=== PATIENT | female | born 1955 | race Caucasian/White ===

== ENCOUNTER 2018-01-08 05:57 | Observation (INO) | payer MEDICARE, MEDICAID ==
[~2018-01-08] VITALS: Ht 149.9 cm; Wt 73.0 kg
[2018-01-08] VITALS (8 sets, daily range): BP systolic 114–156; BP diastolic 55–75; Ht 149.9 cm; Wt 73.0 kg
[2018-01-08] MEDS ORDERED: KLONOPIN (06:17)
[2018-01-08] MEDS ORDERED: TRAZADONE (06:17)
[2018-01-08] MEDS ORDERED: SPIRONOLACTONE (06:17)
[2018-01-08] MEDS ORDERED: CYMBALTA (06:17)
[2018-01-08] MEDS ORDERED: MONOPRIL (06:17)
[2018-01-08] MEDS ORDERED: ABILIFY (06:17)
[2018-01-08] MEDS ORDERED: LANTUS SC (06:18)
[2018-01-08] MEDS ORDERED: HUMALOG (06:19)
[2018-01-08 07:08] LABS: BASOPHILS 0.3 % (0-2); EOSINOPHILS 3.3 % (0-7); HEMATOCRIT 42.4 % (36.0-48.0); HEMOGLOBIN 14.5 g/dL (12-16); LYMPHOCYTES 37.4 % (15-50); MCH 31.9 pg (26.0-34.0); MCHC 34.2 g/dL (31.0-37.0); MCV 93.2 fL (80.0-100.0); MEAN PLATELET VOLUME 9.6 fL (7.4-10.4); MONOCYTES 6.6 % (2-11); NEUTROPHILS 50.4 % (40-80); PLATELET COUNT 203 10x3/uL (130-400); RBC 4.55 10x6/uL (4.00-5.40); RDW 14.1 % (11.5-14.5); WBC 10.6 10x3/uL (4.8-10.8)
[2018-01-08 07:38] LABS: ALBUMIN 3.3 g/dL (3.4-5.0); ANION GAP 12.6 mmol/L (8-16); BILIRUBIN - TOTAL 0.28 mg/dL (0.2-1.3); CALCIUM 9.1 mg/dL (8.5-10.1); CARBON DIOXIDE 26.1 mmol/L (21.0-32.0); CREATININE - SERUM 1.1 mg/dL (0.6-1.3); POTASSIUM - SERUM 4.7 mmol/L (3.5-5.1); PROTEIN - SERUM 7.2 g/dL (6.4-8.2)
[2018-01-08 07:47] LABS: T4 THYROXIN - FREE 1.44 ng/dL (0.76-1.46); THYROID STIMULATING HORMONE 3.14 uIU/mL (0.36-3.74)
[2018-01-09 01:02] VITALS: BP 106/74
[2018-01-09 05:38] LABS: BASOPHILS 0.5 % (0-2); EOSINOPHILS 1.7 % (0-7); HEMATOCRIT 44.4 % (36.0-48.0); HEMOGLOBIN 14.9 g/dL (12-16); IMMATURE GRANULOCYTES 1.2 % (0-5); LYMPHOCYTES 37.2 % (15-50); MCH 31.8 pg (26.0-34.0); MCHC 33.6 g/dL (31.0-37.0); MCV 94.9 fL (80.0-100.0); MEAN PLATELET VOLUME 10.2 fL (7.4-10.4); MONOCYTES 10.1 % (2-11); NEUTROPHILS 49.3 % (40-80); PLATELET COUNT 222 10x3/uL (130-400); RBC 4.68 10x6/uL (4.00-5.40); RDW 14.5 % (11.5-14.5); WBC 9.7 10x3/uL (4.8-10.8)
[2018-01-09 05:51] VITALS: BP 127/73
[2018-01-09 05:57] LABS: ALBUMIN 3.2 g/dL (3.4-5.0); BILIRUBIN - TOTAL 0.13 mg/dL (0.2-1.3); CALCIUM 9.3 mg/dL (8.5-10.1); CARBON DIOXIDE 25.5 mmol/L (21.0-32.0); CREATININE - SERUM 1.1 mg/dL (0.6-1.3); POTASSIUM - SERUM 4.5 mmol/L (3.5-5.1); PROTEIN - SERUM 7.1 g/dL (6.4-8.2)
[2018-01-09 08:30] VITALS: BP 171/97
[2018-01-09 12:58] VITALS: BP 172/73
[2018-01-12 03:11] LABS: HEPATITIS C ANTIBODY <0.1 (0.0-0.9)
== END 2018-01-09 19:14 | disposition home or self-care (01) ==
LOC: D.ER 05:57 → D.EDHOLD 06:34 → D.M2 06:34 → OBSVTIME 06:34 → D.EDHOLD 06:34 → D.M2 09:54
PROVIDERS: Family Medicine; Internal Medicine
DX: E87.1 Hypo-osmolality and hyponatremia (principal); I25.10 Atherosclerotic heart disease of native coronary artery without angina pectoris; Z95.5 Presence of coronary angioplasty implant and graft; J44.9 Chronic obstructive pulmonary disease, unspecified; F32.9 Major depressive disorder, single episode, unspecified; E11.9 Type 2 diabetes mellitus without complications; Z79.4 Long term (current) use of insulin; E78.5 Hyperlipidemia, unspecified; R18.8 Other ascites; I10 Essential (primary) hypertension; K21.9 Gastro-esophageal reflux disease without esophagitis

== ENCOUNTER 2019-12-12 15:39 | Emergency (ER) | payer MEDICARE ==
[~2019-12-12] VITALS: Ht 149.9 cm; Wt 79.5 kg
[~2019-12-12 15:39] MED LIST: ABILIFY; CYMBALTA; HUMALOG; KLONOPIN; LANTUS SC; MONOPRIL; SPIRONOLACTONE; TRAZADONE
[2019-12-12 15:46] VITALS: Ht 149.9 cm; Wt 79.5 kg
[2019-12-12 16:15] LABS: BASOPHILS 0.2 % (0-2); EOSINOPHILS 2.3 % (0-7); HEMATOCRIT 36.1 % (36.0-48.0); HEMOGLOBIN 11.6 g/dL (12-16); IMMATURE GRANULOCYTES 1.5 % (0-5); LYMPHOCYTES 38.8 % (15-50); MCH 30.4 pg (26.0-34.0); MCHC 32.1 g/dL (31.0-37.0); MCV 94.8 fL (80.0-100.0); MEAN PLATELET VOLUME 9.3 fL (7.4-10.4); MONOCYTES 8.4 % (2-11); NEUTROPHILS 48.8 % (40-80); PLATELET COUNT 213 10x3/uL (130-400); RBC 3.81 10x6/uL (4.00-5.40); RDW 13.9 % (11.5-14.5); WBC 12.4 10x3/uL (4.8-10.8)
[2019-12-12 16:24] LABS: ANION GAP 9.6 mmol/L (8-16); CALCIUM 9.3 mg/dL (8.5-10.1); CARBON DIOXIDE 29.8 mmol/L (21.0-32.0); CREATININE - SERUM 1.1 mg/dL (0.6-1.3); POTASSIUM - SERUM 4.4 mmol/L (3.5-5.1)
[2019-12-12 16:30] LABS: ALBUMIN 3.8 g/dL (3.4-5.0); BILIRUBIN - TOTAL 0.33 mg/dL (0.2-1.3); PROTEIN - SERUM 7.1 g/dL (6.4-8.2)
[2019-12-12 16:40] LABS: BILIRUBIN NEGATIVE (NEGATIVE); GLUCOSE NEGATIVE (NEGATIVE); KETONE NEGATIVE (NEGATIVE); NITRITE NEGATIVE (NEGATIVE); UROBILINOGEN NORMAL (NORMAL)
[2019-12-12] MEDS ORDERED: MOBIC7.5 MG PO (19:33)
[2019-12-12 20:24] VITALS: BP 162/82
== END 2019-12-12 20:24 | disposition home or self-care (01) ==
LOC: D.ER 15:39
PROVIDERS: Family Medicine
DX: M54.5 Low back pain (principal); E11.9 Type 2 diabetes mellitus without complications; I10 Essential (primary) hypertension; J44.9 Chronic obstructive pulmonary disease, unspecified; K21.9 Gastro-esophageal reflux disease without esophagitis; Z79.4 Long term (current) use of insulin; R10.9 Unspecified abdominal pain